=== PATIENT | female | born 1995 | race Caucasian/White ===

== ENCOUNTER 2023-10-20 16:29 | Emergency (ER) | payer SELFPAY ==
[2023-10-20 16:55] LABS: Bilirubin Negative (Negative); Blood, Urine Trace (Negative); Glucose, Urine (Dipstick) Negative (Negative); Ketone, Urine Negative (Negative); Leukocyte Negative (Negative); Nitrite Negative (Negative); Protein, Urine (Dipstick) Negative (Neg-Trace); pH, Urine 6.5 (5.0-9.0)
[2023-10-20 16:56] LABS: Pregnancy Test - Urine (BHCG) POSITIVE (Negative); Specific Gravity 1.028 (1.002-1.036)
[2023-10-20 16:57] LABS: Clarity Clear (Clear); Pregu Control Background? CLEAR/WHITE (CLR/WHITE); Pregu Control Bar Appear? YES (CONTROL BAR); Specific Gravity, Urine 1.028 (1.002-1.036)
[2023-10-20 17:05] LABS: Bacteria/HPF Rare-Few HPF (None Seen); Mucous/LPF Few LPF (<2+); RBC/HPF 0-3 HPF (0-3); Squamous Epithelial 0-3 HPF (0-3)
[2023-10-20 17:06] LABS: Urine Culture Reflex Yes Yes
== END 2023-10-20 17:02 | disposition home or self-care (01) ==
LOC: MADERS 16:29
DX: Z33.1 Pregnant state, incidental (principal); Z87.891 Personal history of nicotine dependence
CPT/HCPCS: 36415; 81001; 81025; 84702; 86900; 86901; 87086; 99282

== ENCOUNTER 2023-11-26 10:18 | Emergency (ER) | payer MEDICAID, SELFPAY | END 2023-11-26 11:00 | disposition short-term general hospital (02) | LOC: MADERS 10:18 | DX: O99.891 Other specified diseases and conditions complicating pregnancy (principal); O99.331 Smoking (tobacco) complicating pregnancy, first trimester; N89.8 Other specified noninflammatory disorders of vagina; Z3A.01 Less than 8 weeks gestation of pregnancy | CPT/HCPCS: 99283 ==

== ENCOUNTER 2024-03-17 03:00 | Emergency (ER) | payer MEDICAID, OTHER ==
[2024-03-17 03:36] LABS: Bilirubin Small (Negative); Blood, Urine Large (Negative); Clarity Turbid (Clear); Glucose, Urine (Dipstick) Negative (Negative); Ketone, Urine Trace mg/dL (Negative); Leukocyte Trace (Negative); Nitrite Negative (Negative); Protein, Urine (Dipstick) 100 mg/dL (Neg-Trace)
[2024-03-17 03:42] LABS: Bacteria/HPF Rare-Few HPF (None Seen); CAUTI Indications for Culture Dysuria,urgency,freq; RBC/HPF Greater than 50 HPF (0-3); Squamous Epithelial 0-3 HPF (0-3)
[2024-03-17 03:43] LABS: Pregnancy Test - Urine (BHCG) Negative (Negative); Pregu Control Background? CLEAR/WHITE (CLR/WHITE); Pregu Control Bar Appear? YES (CONTROL BAR); Urine Culture Reflex No No
[2024-03-17 03:46] LABS: Amphetamine Detected (NotDetected); Barbiturates Screen Not Detected (NotDetected); Benzodiazepine Screen Not Detected (NotDetected); Cocaine Metabolite Screen Not Detected (NotDetected); Methadone Not Detected (NotDetected); Methamphetamine Detected (NotDetected); Opiate Screen Not Detected (NotDetected); Oxycodone Screen Not Detected (NotDetected); Phencyclidine (PCP) Not Detected (NotDetected); THC/Cannabinoid Screen Not Detected (NotDetected); Tricyclic Screen Not Detected (NotDetected)
== END 2024-03-17 04:10 | disposition home or self-care (01) ==
LOC: MADERS 03:00
DX: Z71.1 Person with feared health complaint in whom no diagnosis is made (principal); Z59.00 Homelessness unspecified; Z87.891 Personal history of nicotine dependence
CPT/HCPCS: 80306; 81001; 81025; 99284